=== PATIENT | male | born 1950 | race Caucasian/White ===

== ENCOUNTER 2017-03-03 09:07 | Inpatient (IN) | payer MEDICARE, OTHER ==
[~2017-03-03] VITALS: Ht 175.3 cm; Wt 103.8 kg
[2017-03-03] VITALS (16 sets, daily range): BP systolic 139–174; BP diastolic 59–99; PULSE 35–52; RESP 14–16; O2SAT 92–97
[~2017-03-03 09:07] MED LIST: ASPI81TA3; CLOP75TA14; CRES20T; LEV250; MTP50TCR; MTR250T; ZES20
--- NOTE | 2017-03-03 09:29 | ED.REPORT ---
HPI-Chest Pain 40 and Over Date of Service Mar 03, 2017 ED Provider: Dilcia Singleton MD The patient is a 66 year old male with a hx of IA with stents 2 years ago, CHF, hyperlipidemia, and HTN on metoprolol presenting to the ED from a residency clinic complaining of SOB onset last night. He claims to have had increasing exertional dyspnea for while now and the SOB for the last three days, but last night was particularly bad. He says that he is better as long as he is sitting up. The patient denies chest pain, LE swelling, fever, nausea, chills, or vomiting. Nursing Notes Stated Complaint: IRREGULAR HEARTBEAT/REFERRED BY RESIDENCY Chief Complaint: Chest Pain Nursing Notes Reviewed: Yes Allergies: Coded Allergies: No Known Allergies (Unverified , 03/03/17) Scheduled Aspirin (Aspirin) 81 Mg Tablet 81 MG PO DAILY Atorvastatin Calcium (Atorvastatin Calcium) 20 Mg Tablet 20 MG PO DAILY Lisinopril (Lisinopril) 10 Mg Tablet 10 MG PO BID Metoprolol Tartrate (Metoprolol Tartrate) 50 Mg Tablet 100 MG PO DAILY General Time Seen by MD: 09:23 Chief Complaint Shortness of breath Hx Obtained From: Patient Arrived By: Walk-in Sudden in Onset?: No Onset Occurred: Yesterday Symptom Duration: Since onset Recent Healthcare: Recent doctor visit, Recent testing Similar Sx Previous: Yes Risk Factors )( CAD Risk Stratification Risk factors reviewed )( TAD Risk Stratification Risk factors reviewed )( PE Risk Stratification Risk factors reviewed Past Medical History Past Medical History IA with stents 2 years ago HTN CAD Ischemic cardiomyopathy CHF Hyperlipidemia on metoprolol Past Surgical History left arm, knee Smoking History Unknown if Ever Smoker Ambulatory Status Independent Review of Systems Constitutional: Denies: Chills, Fever Respiratory: Reports: Shortness of breath Cardiovascular: Denies: Chest pain GI: Denies: Nausea, Vomiting Musculoskeletal: Denies: Extremity swelling Complete sys rev & neg: except as marked. Physical Exam Initial Vital Signs Vital Signs (First) Date Time Temp Pulse Resp B/P Pulse Ox O2 Delivery O2 Flow Rate FiO2 03/03/17 09:16 36.9 52 16 172/95 95 Room Air Initial VS: Reviewed, Vital signs normal Head / Eyes: Atraumatic, Normocephalic, PERRL Neck: Supple, Non-tender, Full range of motion Back: No CVA tenderness Extremities: Vascular intact, Neuro intact, No swelling, No tenderness Neurologic: Alert, Oriented, Nonfocal Psychiatric: Mood/affect normal, Behavior normal, Normal thought content General/Constitutional: Awake, Alert, No acute distress, Well appearing Respiratory / Chest: Atraumatic no fluids in lungs Cardiovascular: No murmurs no palpable distal pulse multiple non-difusing beats palpable HR lower than measured telemetry HR in 25-35 range Abdomen: Soft, Non-tender, McBurney's non-tender, No guarding, No rebound, BS normoactive, No distention, No hernia, No palpable mass Lower Extremity / Pelvis / MS: No deformity, Neurologic intact, No edema Skin: Atraumatic, Warm, Dry good skin perfusion and turgor Interpretation & Diagnostics Lab Results Interpretation Result Diagram: 03/03/17 0952 03/03/17 0952 Test 03/03/17 09:52 White Blood Count 7.9th/mm3 (3.8-10.1) Red Blood Count 5.25mil/mm3 (4.40-5.80) Hemoglobin 16.3g/dL (13.8-17.2) Hematocrit 47.7% (41.0-50.0) Mean Corpuscular Volume 90.9fL (81-100) Mean Corpuscular Hemoglobin 31.0pg (27.0-35.0) Mean Corpuscular Hemoglobin Concent 34.2% (32.0-37.0) Red Cell Distribution Width 13.6% (12.3-15.4) Platelet Count 174bil/L (150-400) Neutrophils (%) (Auto) 75.7% (40-74) Lymphocytes (%) (Auto) 14.9% (14-46) Monocytes (%) (Auto) 8.4% (4-12) Eosinophils (%) (Auto) 0.3% (0-5) Basophils (%) (Auto) 0.4% (0-3) Prothrombin Time 10.9sec (8.1-12.5) Prothromb Time International Ratio 1.02ratio Sodium Level 138mEq/L (134-144) Potassium Level 4.5mEq/L (3.5-5.2) Chloride Level 104mEq/L (97-108) Carbon Dioxide Level 17mmol/L (18-29) Blood Urea Nitrogen 15mg/dL (8-27) Creatinine 0.78mg/dL (0.76-1.27) Estimat Glomerular Filtration Rate 105mL/min (>59) Glucose Level 117mg/dL (60-99) Calcium Level 9.5mg/dL (8.5-10.1) Magnesium Level 1.8mg/dL (1.6-2.6) Total Bilirubin 1.1mg/dL (0.0-1.2) Aspartate Amino Transf (AST/SGOT) 29U/L (0-50) Alanine Aminotransferase (ALT/SGPT) 52U/L (0-44) Alkaline Phosphatase 80U/L (25-160) Troponin T 0.010ug/L (0.0-0.011) Pro-B-Type Natriuretic Peptide 1667pg/mL (0-376) Total Protein 7.3g/dL (6.4-8.4) Albumin 4.3g/dL (3.4-5.0) ECG Interpretation ECG Interpretation: 2nd degree type 2 block frequent PVC This is a significant change from the previous Time: 09:14 Interpreted by: ED physician Normal ECG Interpretation: Normal rate (78), Normal sinus rhythm, No acute ischemic changes ECG Interpretation: Noted bradycardia on lunchroom monitor 2nd degree type 2 block with 2:1 conduction Time: 10:53 Interpreted by: ED physician Abnormal Rate: Rate, 30 (36) X-Ray Chest Interpretation Chest Xray Interpretation: IMPRESSION: Mild cardiomegaly, without acute cardiopulmonary disease. Dictated by: Isaac Amezquita M.D. on 03/03/2017 at 9:46 Approved by: Isaac Amezquita M.D. on 03/03/2017 at 9:47 View: Portable, 1 view Interpretation / Wet Read by: Interpret - Radiologist Re-Eval/Medical Decision Med Decision/Clinical Course 66-year-old gentleman presents with exertional dyspnea for "a while". Significantly noticeable over the last 2 weeks and last night had severe orthopnea and was unable to lay down at all. EKG reveals bradycardia he has a second-degree type II block. No signs of ischemia and initial troponin is negative. He has had a number of stents placed previously. He is currently on metoprolol and has been taking it regularly remains hypotensive. At this point he has symptomatic bradycardia with any exertion at rest he is tolerating his heart rate in the 30s without problems. There does not appear to be significant failure at this point. He has a modest amount of interstitial findings on chest exam but no lower extremity edema We'll admit to our hospitalist service with cardiology consultation and consideration of pacemaker placement patient is currently nothing by mouth last meal was dinner yesterday Time of Eval: 11:20 Re-Evaluation/Progress Note: Patient rechecked. Discussed results and plan. Consultation #1: Referral / Consult Name: Jamison Duque MD Consulted With: Cardiology Call Returned at: 09:47 Imaging Engineer: Will see patient, Agrees with plan Note: Discussed patient's case. Agrees to see patient. Consultation #2: Referral / Consult Name: Joseph Quiñones MD Consulted With: Hospitalist Call Returned at: 12:01 Imaging Engineer: Will see patient, Agrees with plan, Accepts admit Counseled Regarding: Diagnosis, Lab results, Need for admission Discharge & Departure Primary Impression: Bradycardia Additional Impressions: Second-degree heart block Orthopnea Exertional dyspnea Disposition: ADMITTED TO HOSPITAL Discharge Condition All VS Reviewed: Yes Condition: Improved Referrals: Clarisse Mcgraw DO (PCP) Corinneibсветлана Attestation Portions of this note were transcribed by Camilla Cage and Janusz Seo. I, Dr. Singleton personally performed the history, physical exam and medical decision -making; I reviewed and confirmed the accuracy of the information in the transcribed note. Signed by: Joana Steen, 03/03/2017 copies to: Clarisse Mcgraw Shawna L MD Mar 03, 2017 09:28 Mar 03, 2017 09:43 CAMILLA CAGE Mar 03, 2017 10:10
--- NOTE | 2017-03-03 09:48 | DRSVH ---
PROCEDURE: X-RAY CHEST ONE VIEW, PORTABLE ([id number]) INDICATIONS: 66 year-old male with shortness of breath. TECHNIQUE: One view of the chest was acquired. COMPARISON: [facility], CR, CHEST 1VW (PORTABLE), 11/26/2007, 14:15. [facility], RG, CHEST 1VW (PORTABLE), 01/05/2006, 14:09. FINDINGS: Surgical changes and devices: None. Lungs and pleura: No pleural effusions or pneumothorax. Lungs are clear. Right apical azygos fissu re is again incidentally noted, an anatomic variant. Mediastinum: Mediastinal contours appear normal. Mild cardiomegaly is unchanged. Bones and chest wall: No suspicious bony lesions. Overlying soft tissues appear unremarkable. IMPRESSION: Mild cardiomegaly, without acute cardiopulmonary disease. Dictated by: Isaac Amezquita M.D. on 03/03/2017 at 9:46 Approved by: Isaac Amezquita M.D. on 03/03/2017 at 9:47
[2017-03-03] MEDS ORDERED: Atropine 1 mg/10 mL (Code) Syringe IVPUSH PRN ×2 (10:05→20:20)
[2017-03-03 10:08] LABS: BASOPHILS % (AUTO) 0.4 % (0-3); EOSINOPHILS % (AUTO) 0.3 % (0-5); MONOCYTES % (AUTO) 8.4 % (4-12); Mean Corpuscular Volume 90.9 fL (81-100); NEUTROPHILS % (AUTO) 75.7 % (40-74); Platelet Count 174 bil/L (150-400)
[2017-03-03] MEDS ORDERED: METO50TA3 PO (10:12)
[2017-03-03] MEDS ORDERED: LISI10TA PO (10:12)
[2017-03-03] MEDS ORDERED: ASPI-973 PO (10:12)
[2017-03-03] MEDS ORDERED: ATOR20TA PO (10:12)
[2017-03-03 10:56] LABS: INR 1.02 ratio
[2017-03-03 11:24] LABS: TROPONIN T 0.01 ug/L (0.0-0.011)
[2017-03-03 11:35] LABS: Magnesium 1.8 mg/dL (1.6-2.6)
[2017-03-03] MEDS ORDERED: ATOR20TA65 PO (12:04)
[2017-03-03] MEDS ORDERED: 0.9% Sodium Chloride 1,000 ML IV SCH (12:31)
[2017-03-03] MEDS ORDERED: Ondansetron 2 mg/mL 2 mL Inj IVPUSH PRN ×3 (12:35→20:20)
--- NOTE | 2017-03-03 13:01 | NUR ---
Admit Pt admitted to [facility] from ER at 1245. A&Oxe, vitals stable, Tele SB 50 with 2nd degree block, No c/o dizziness or SOB. No skin issues other than scrapes from blackberry bushes, cellphone and wallet at the bedside. Oriented to room and call light. Asked pt to call when getting up just for safety.
[2017-03-03] MEDS ORDERED: Alum-Mag Hydrox-Simeth 30 mL Suspension PO PRN (14:35)
[2017-03-03] MEDS ORDERED: Polyethylene Glycol (PEG) 17 Gm Powder PO PRN (14:35)
--- NOTE | 2017-03-03 14:48 | PCM.HPMED ---
Subjective Date of Service Mar 03, 2017 Primary Provider: Admitting Physician: Joseph Quiñones MD Primary Care Physician: Clarisse Mcgraw DO Attending Physician: Joseph Quiñones MD Chief Complaint: Shortness of breath History of Present Illness: Patient is a 66-year-old male from home presented to the ED with orthopnea and bradycardia. He carries a medical history significant for obesity, hypertension, dyslipidemia , CAD s/p stenting, and ischemic cardiomyopathy. Per patient, reported progressive worsening of shortness of breath for 1-1.5 months with associated near syncope. Last night, he had significant orthopnea with rate 48 and irregular rhythm, unable to sleep, thus sought medical care. Patient called [facility] residency, which referred him to the ED for further evaluation. Patient denies any current lightheadedness or dizziness, no chest pain, no palpitation. Patient further denies any recent leg swelling, dry cough or orthopnea. At baseline, patient reported that he can push mow his lawn for total "4.7 miles in 2 hours". The ED, patient noted to be bradycardic at 52 with EKG showing second-degree heart block type II. Cardiology consulted and is following. Patient admitted inpatient for further workup. Review of Systems: A comprehensive review of systems was conducted with the patient and found to be negative except as above in the History of Present Illness. Allergies Coded Allergies: No Known Allergies (Unverified , 03/03/17) Home Medications Aspirin 81 mg daily Atorvastatin 20 mg daily Lisinopril 10 mg twice a day Metoprolol tartrate 100 mg daily PMH Hypertension Hyperlipidemia Coronary artery disease -RCA complete occlusion -Circumflex occluded -Drug eluding stent x2 to LAD Ischemic cardiomyopathy History of systolic heart failure, EF 25% (10/2005) Surgical History Cardiac catheterization and stenting 2005 Family History Father with diabetes type II, of heart failure Mother with Alzheimer disease Social History Hx Alcohol Use: No Hx Substance Use: No Hx Tobacco Use: Yes Smoking Status: Former Smoker, Unknown if Ever Smoker Exam Vital Signs Vital Sign - Last Date Time Temp Pulse Resp B/P Pulse Ox O2 Delivery O2 Flow Rate FiO2 03/03/17 12:51 50 03/03/17 12:46 36.6 16 174/99 97 Room Air Exam General: No acute distress, appropriately interactive HEENT: Normocephalic, atraumatic. PERRLA, EOMI, Anicteric sclerae, moist conjunctivae. Neck: No bruits. No lymphadenopathy or thyromegaly. Cardiovascular: Bradycardic, irregular, no murmur rub or gallop noted, no JVD, no bilateral pedal edema Pulmonary: b/l air sound with no crackles, wheezes, or rhonchi. no use of accessory muscles. Abdomen: +Bowel sound, Soft, nontender, nondistended. Extremities: No clubbing or cyanosis, no lymphedema Skin: Normal temperature, turgor, and texture; no rash. No visualized skin ulcer. Neurological: CN II-VII grossly intact, moving equally on all 4 extremities Psychiatric: Normal mood and affect. AOx3 Lab and Diagnostics Result Diagram: 03/03/1752 03/03/1752 X-Rays, CTs and MRIs PROCEDURE: X-RAY CHEST ONE VIEW, PORTABLE ([id number]) INDICATIONS: 66 year-old male with shortness of breath. IMPRESSION: Mild cardiomegaly, without acute cardiopulmonary disease. Dictated by: Isaac Amezquita M.D. on 03/03/2017 at 9:46 Assessment & Plan Patient 66-year-old male with a medical history significant for hypertension, dyslipidemia, CAD status post stenting, and ischemic cardiomyopathy admitted for bradycardia. Bradycardia, present on admission, active -2nd heart block, type II -holding home dose metoprolol -Telemetry order -repeat EKG in the morning -Echocardiogram ordered -Cardiology Jamison Montano consulted Essential hypertension, present remission, active -Continue lisinopril, Holding metoprolol as above -Enalapril 5 mg IV push for SBP greater than 180 mmHg Dyslipidemia, present on admission, active -Continue atorvastatin Coronary artery disease, present on admission, stable -Continue statin and aspirin DVT prophylaxis CODE STATUS full code Patient Status: Patient is admitted under inpatient status with expected length of stay GREATER than 2 midnights due to severity of presenting symptoms, risk of adverse event, and complexity of treatment plan. VTE Prophylaxis: Sub-Q Heparin (Unfractionated) Resuscitation Status: CPR: Attempt Resuscitation Time spent 45 minutes Attending Statement The patient was seen and examined together with on March 03 and I agree with the history, exam findings, and plan as outlined in the note above. I did participate in all aspects of the services provided today, including documentation and the plan of care. The patient appears to be a type II second-degree block. Will hold metoprolol and consult cardiology. The patient has a known history of coronary artery disease with two-vessel disease demonstrated his last angiogram. Manuel Hunter DO Mar 03, 2017 14:48 Joseph Quiñones MD Mar 04, 2017 08:27
[2017-03-03] MEDS ORDERED: Enalaprilat 1.25 mg/mL 2 mL Inj IVPUSH PRN (15:20)
[2017-03-03] MEDS ORDERED: Heparin 1,000 Units/500 mL NS Premix IV ONE (15:51)
[2017-03-03] MEDS ORDERED: Heparin 1,000 Unit/mL 10 mL Inj ONE (15:51)
[2017-03-03] MEDS ORDERED: Heparin 10,000 Unit/1,000 mL NS Premix IV ONE (15:51)
[2017-03-03] MEDS: Heparin 5,000 Unit/mL Inj SUBQ SCH (16:30)
[2017-03-03] MEDS ORDERED: fentaNYL-PF 50 mCg/mL 2 mL Inj ONE ×2 (16:48→16:58)
--- NOTE | 2017-03-03 16:56 | CONS ---
[address] [address] CONSULTATION REPORT PATIENT: JOSHUA REINA : 1950 MR#: [id number] ADMIT: 03/03/2017 JOB ID: [id number] DATE OF SERVICE: 03/03/2017 CHIEF COMPLAINT: Shortness of breath. HISTORY OF PRESENT ILLNESS: This 66-year-old gentleman with a history of prior [place] with stents years ago; he is not sure when. This was done at [facility]. He now presents with shortness of breath. He states for the past three months, he has been finding it difficult to mow his lawn. He is gradually getting more and more short of breath to the point where he recently tried mowing his lawn, he got short of breath and along with this. He felt extremely weak. He also got diaphoretic. Last night, he could sleep very well. He was having shortness of breath. He could not lie flat. He did have to sit up multiple times. He decided to come to the emergency department this morning. In the emergency department, he was found to have periods of 2:1 AV block. Cardiology was consulted. The patient at the time of interview is pain free. He is feeling better. He has not had any chest pressure or tightness since he has been in the hospital. PAST MEDICAL HISTORY: Significant for hypertension, hyperlipidemia, coronary artery disease, ischemic cardiomyopathy, systolic dysfunction. Past cardiac catheterization films will be obtained from archives. He has history of severe three-vessel coronary artery disease with total occlusion of RCA and stenting of the LAD. MEDICATIONS: At home: Aspirin, atorvastatin, lisinopril, metoprolol. ALLERGIES: None. PERSONAL HISTORY: Nonsmoker, nondrinker. Quit smoking over seven years ago. FAMILY HISTORY: Negative for premature coronary artery disease. PHYSICAL EXAMINATION: Elderly gentleman in no apparent distress. Looks somewhat older than his stated age. Pulse 60, blood pressure 170/99. Neck is supple. No JVD. Chest: Clear. Heart sounds S1, S2, regular. No murmurs, no gallops. Abdomen is soft. No organomegaly. Extremities: No edema. GENERAL I FARMWORKER: Alert and oriented x3. Psych: Mood and affect is appropriate. LABORATORY DATA: Labs were reviewed. Creatinine is 0.78, hemoglobin is 16. DIAGNOSTIC DATA: EKG is reviewed. He has got 2:1 AV block. There is suggestion of an accessory pathway on his baseline EKG. ASSESSMENT AND PLAN: This gentleman's history is suggestive of paroxysmal nocturnal dyspnea during the night. Given his exertional dyspnea and history of ischemic cardiomyopathy, I feel he needs to be evaluated with repeat angiogram. Risks, benefits and alternatives were explained to the patient. He is agreeable. This should be done later today. With regards to his atrioventricular block, I would like to hold his metoprolol and if his heart rate does not improve, he might be a candidate for permanent pacemaker insertion as well.
[2017-03-03] MEDS ORDERED: EPINEPHrine 0.1 mg/mL 10 mL Syringe ONE (17:04)
--- NOTE | 2017-03-03 17:49 | CS94 ---
[address] [address] DIAGNOSTIC CARDIAC CATHETERIZATION PATIENT: JOSHUA REINA : 1950 MR#: [id number] ADMIT: 03/03/2017 JOB ID: [id number] SERVICE DATE: 03/03/2017 PROCEDURE: Selective right and left coronary angiography, left heart catheterization. INDICATION: Ischemic cardiomyopathy, PND. PROCEDURAL DETAILS: The readers and the coders are referred to the procedure log for complete details. Briefly, it was done via right femoral approach using a 6-Mosotho system. ANGIOGRAPHIC FINDINGS: 1. Calcification of the left main and proximal coronaries is noted on fluoroscopy. 2. LAD has a stent in its mid to proximal portion. The stent is patent. Moderate caliber septal branch. The LAD is totally occluded in its mid segment. It appears to be a short moderate caliber occlusion. 3. Circumflex is nondominant. It is totally occluded in its proximal part. It gives off a rather large caliber obtuse marginal branch. This is a very short-segment occlusion. The obtuse marginal branch is bypassable. 4. RCA has an ostial 80% lesion. It is totally occluded in its mid segment. Bridging collaterals are seen in the mid segment. The RCA is also seen via [id number] collaterals. The distal RCA appears to be bypassable. 5. Left heart catheterization revealed an LVEDP of 18. There was no gradient upon pullback. There is severe LV dysfunction. EF is estimated to be around 25%, though this was a suboptimal injection, as the injector got disconnected half-way through the injection. RECOMMENDATIONS: Given the patient's 2:1 AV block, I would recommend holding his beta blockers. In the interim I would recommend optimizing his heart failure medications with hydralazine and nitrates. He needs to be evaluated for an ICD as well. With regards to his ischemic cardiomyopathy, even though the LAD and the circumflex are amenable to percutaneous intervention, the RCA I feel would be challenging and very difficult part. It is a long segment of occlusion and even with a retrograde approach he might end up losing a rather significant marginal branch, therefore he is best served with bypass surgery. I will be contacting surgeons at [facility].
--- NOTE | 2017-03-03 20:13 | NUR ---
[facility], VSS, Rt groin site CDI with no bleeding/hematoma noted.
[2017-03-03] MEDS ORDERED: 0.9% Sodium Chloride 400 ML (4 HRS) IV ONE (20:20)
[2017-03-03] MEDS ORDERED: 0.9% Sodium Chloride 250 ML BOLUS IV PRN (20:20)
[2017-03-03] MEDS ORDERED: Sodium Chloride LOK Flush 10 mL Syringe IVFLUSH PRN (20:20)
[2017-03-04] MEDS: Heparin 5,000 Unit/mL Inj SUBQ SCH ×2 (01:01→08:47)
[2017-03-04 04:10] VITALS: BP 159/76; PULSE 50; RESP 16; O2SAT 94
--- NOTE | 2017-03-04 04:44 | NUR ---
Groin Site/HR Pt's groin site still has the dressing on so no direct observation at this time. Pt's groin site has minimal bruising and is not tender and is soft to the touch. Pt still has not been OOB yet. Pt's HR has remained in the 30s-40s and pt is asymptomatic. has been made aware.
[2017-03-04 05:29] VITALS: PULSE 52
[2017-03-04 05:35] LABS: Mean Corpuscular Hemoglobin 30.8 pg (27.0-35.0); Mean Corpuscular Volume 91.8 fL (81-100)
[2017-03-04 05:55] LABS: Magnesium 1.9 mg/dL (1.6-2.6)
[2017-03-04 08:00] VITALS: PULSE 51
[2017-03-04 08:48] VITALS: BP 130/81; PULSE 59; RESP 18; O2SAT 97
[2017-03-04 11:16] VITALS: BP 154/55; PULSE 41; RESP 24; O2SAT 96
--- NOTE | 2017-03-04 12:14 | DRSVH ---
[facility] [address] [place] [address] Echocardiogram Report Name: JOSHUA REINA Date: 03/04/2017 Height: 69 in Hospital Exam Location: [facility] Weight: 229 lb Gender: Male BSA: 2.2 m2 : 1950 Age: 66 yrs BP: 159/76 mmHg Reason For Study: HEART BLOCK Ordering Physician: Performed By: Yared Arteaga Referring Physician: HAI GUZMAN Interpretation Summary 1) Severely dilated left ventricle with moderately to sevrely reduced function (EF about 30%). 2) Apical dyskinesis, basal inferolateral wall and basal wall are akinetic. Mid to distal inferior wall, distal septum, and mid to to distal inferolateral wall are severely hypokinetic. Anterior wall and mid septum are mildly hypokinetic. The anterolateral wall and the basal septum have preserved wall motion. 3) Normal right ventricular size and normal function. 4) No significant valvular abnormalities. 5) No prior Echo available for comparison. Findings consistent with ischemic cardiomyopathy. Procedure: A two-dimensional transthoracic echocardiogram with color flow and Doppler was performed. The study quality was technically difficult. A contrast injection of Definity was performed to improve assessment of LV function. Comparison is made with the echocardiogram of 11/12/05. The patient was in a bradycardic rhythm during the exam. The patient had frequent PVCs during the exam. Left Ventricle: The left ventricle is severely dilated. There is normal left ventricular wall thickness. Left ventricular ejection fraction is estimated to be 30 +/- 5%. Left ventricular systolic function is moderate to severely reduced. Apical dyskinesis, basal inferolateral wall and basal wall are akinetic. Mid to distal inferior wall, distal septum, and mid to to distal inferolateral wall are severely hypokinetic. Anterior wall and mid septum are mildly hypokinetic. The anterolateral wall and the basal septum have preserved wall motion. Right Ventricle: The right ventricle grossly appears normal in size with probable normal systolic function. Atria: The left atrium is severely dilated. The right atrium is mild to moderately dilated. The interatrial septum is intact with no evidence for an atrial septal defect. Mitral Valve: The mitral valve leaflets appear borderline thickened, but open well. There is trace mitral regurgitation. Aortic Valve: The aortic valve is normal in structure and function. No aortic regurgitation is present. Tricuspid Valve: The tricuspid valve is not well visualized, but is grossly normal. Pulmonary artery pressures cannot be estimated because of the lack of a measurable TR jet velocity. Pulmonic Valve: The pulmonic valve is not well visualized. Great Vessels: The aortic root is normal size. The ascending aorta is mild- moderately enlarged. The pulmonary is not well visualized. The IVC is of normal diameter and collapses greater than 50% with a sniff. This suggests a low right atrial pressure of 3 mm Hg. Pericardium/ Pleura There is a trivial pericardial effusion noted. There is a moderate left-sided pleural effusion. MMode/2D Measurements & Calculations LVIDd: 7.2 cm LVIDs: 6.8 cm LA A2 area: 30.2 cm FS: 6.5 % LA A4 area: 24.4 cm IVSd: 1.00 cm LA length (vol): 5.5 cm LVPWd: 0.80 cm LA vol: 113.7 ml LA vol index: 52.0 ml/m IVC diam: 2.1 cm RA long axis: 6.2 cm LVOT diam: 2.3 cm RA area: 24.8 cm Ao root diam: 3.5 cm RA vol: 84.4 ml asc Aorta Diam: 4.0 cm RA : 38.6 ml/m2 Ao Arch Diam (Prox Trans): 3.5 cm LV mccoy. diameter/BSA (cm/m^2): 3.3 LV sys. diameter/BSA (cm/m^2): 3.1 RVD1 (basal): 4.8 cm TAPSE: 2.0 cm Doppler Measurements & Calculations Ao V2 max: 125.6 cm/sec Ao V2 mean: 79.2 cm/sec Ao max P.5 mmHg Ao V2 VTI: 18.0 cm Ao mean P.4 mmHg ALDO(V,D): 2.5 cm2 LVOT Max Anil: 77.6 cm/sec ALDO(I,D): 3.3 cm sev ratio: 0.81 LV V1 max P.7 mmHg ALDO indexed to BSA (cm^2/m^2): 1.5 LV V1 VTI: 14.6 cm Reading Physician:12:13 PM
--- NOTE | 2017-03-04 13:05 | PCM.DC.MED ---
Discharge Summary Date of Service Mar 04, 2017 Dates of Hospitalization Date of Hospital Admission Mar 03, 2017 at 11:44 Date of Discharge: Mar 04, 2017 Providers: Admitting Physician: Joseph Quiñones MD Primary Care Physician: Clarisse Mcgraw DO Attending Physician: Joseph Quiñones MD Diagnosis at Time of Discharge Diagnosis at Time of Discharge Bradycardia, present on admission, active Ischemic cardiomyopathy, present on admission, stable Essential hypertension, present remission, active Dyslipidemia, present on admission, active Coronary artery disease, present on admission, stable Consultations Cardiology Procedures XRay, CTs & MRIs PROCEDURE: X-RAY CHEST ONE VIEW, PORTABLE ([id number]) INDICATIONS: 66 year-old male with shortness of breath. IMPRESSION: Mild cardiomegaly, without acute cardiopulmonary disease. Dictated by: Isaac Amezquita M.D. on 03/03/2017 at 9:46 Cardiac Echo Impression Echocardiogram Report Interpretation Summary 1) Severely dilated left ventricle with moderately to sevrely reduced function (EF about 30%). 2) Apical dyskinesis, basal inferolateral wall and basal wall are akinetic. Mid to distal inferior wall, distal septum, and mid to to distal inferolateral wall are severely hypokinetic. Anterior wall and mid septum are mildly hypokinetic. The anterolateral wall and the basal septum have preserved wall motion. 3) Normal right ventricular size and normal function. 4) No significant valvular abnormalities. 5) No prior Echo available for comparison. Findings consistent with ischemic cardiomyopathy. Reading Physician:12:13 PM Invasive Procedures SERVICE DATE: 03/03/2017 PROCEDURE: Selective right and left coronary angiography, left heart catheterization. ANGIOGRAPHIC FINDINGS: 1. Calcification of the left main and proximal coronaries is noted on fluoroscopy. 2. LAD has a stent in its mid to proximal portion. The stent is patent. Moderate caliber septal branch. The LAD is totally occluded in its mid segment. It appears to be a short moderate caliber occlusion. 3. Circumflex is nondominant. It is totally occluded in its proximal part. It gives off a rather large caliber obtuse marginal branch. This is a very short-segment occlusion. The obtuse marginal branch is bypassable. 4. RCA has an ostial 80% lesion. It is totally occluded in its mid segment. Bridging collaterals are seen in the mid segment. The RCA is also seen via rfco-ky-rmida collaterals. The distal RCA appears to be bypassable. 5. Left heart catheterization revealed an LVEDP of 18. There was no gradient upon pullback. There is severe LV dysfunction. EF is estimated to be around 25%, though this was a suboptimal injection, as the injector got disconnected custodial through the injection. RECOMMENDATIONS: Given the patient's 2:1 AV block, I would recommend holding his beta blockers. In the interim I would recommend optimizing his heart failure medications with hydralazine and nitrates. He needs to be evaluated for an ICD as well. With regards to his ischemic cardiomyopathy, even though the LAD and the circumflex are amenable to percutaneous intervention, the RCA I feel would be challenging and very difficult part. It is a long segment of occlusion and even with a retrograde approach he might end up losing a rather significant marginal branch, therefore he is best served with bypass surgery. I will be contacting surgeons at [facility]. Jamison Duque MD 03/03/17 3315 Brief History Patient is a 66-year-old male from home presented to the ED with orthopnea and bradycardia. He carries a medical history significant for obesity, hypertension, dyslipidemia , CAD s/p stenting, and ischemic cardiomyopathy. Per patient, reported progressive worsening of shortness of breath for 1-1.5 months with associated near syncope. Last night, he had significant orthopnea with rate 48 and irregular rhythm, unable to sleep, thus sought medical care. Patient called [facility] residency, which referred him to the ED for further evaluation. Patient denies any current lightheadedness or dizziness, no chest pain, no palpitation. Patient further denies any recent leg swelling, dry cough or orthopnea. At baseline, patient reported that he can push mow his lawn for total "4.7 miles in 2 hours". The ED, patient noted to be bradycardic at 52 with EKG showing second-degree heart block type II. Cardiology consulted and is following. Patient admitted inpatient for further workup. Hospital Course Patient 66-year-old male with a medical history significant for hypertension, dyslipidemia, CAD status post stenting and ischemic cardiomyopathy-EF 30% (2005 ) admitted for bradycardia. Cardiac catheterization results as above. Patient would need an evaluation for bypass surgery to RCA. Cardiothoracic Surgeon Dr. Mitchell has accepted the transfer. Bradycardia, present on admission, active -2nd heart block, type II -holding home dose metoprolol -Cardiology Jamison Montano recommended a transfer to [facility]. Ischemic cardiomyopathy, present on admission, stable -EF 30% on recent echo. -No signs or symptoms of overt heart failure Essential hypertension, present remission, active -Continue lisinopril, Holding metoprolol as above -Enalapril 5 mg IV push for SBP greater than 180 mmHg Dyslipidemia, present on admission, active -Continue atorvastatin Coronary artery disease, present on admission, stable -Continue statin and aspirin DVT prophylaxis heparin Code status: full code. Exam Vital Signs (Last) Date Time Temp Pulse Resp B/P Pulse Ox O2 Delivery O2 Flow Rate FiO2 03/04/17 11:16 37.0 41 24 154/55 96 Room Air Exam General: No acute distress, appropriately interactive HEENT: Normocephalic, atraumatic. PERRLA, EOMI, Anicteric sclerae, moist conjunctivae. Neck: No bruits. No lymphadenopathy or thyromegaly. Cardiovascular: Bradycardic, irregular, no murmur rub or gallop noted, no JVD, no bilateral pedal edema Pulmonary: b/l air sound with no crackles, wheezes, or rhonchi. no use of accessory muscles. Abdomen: +Bowel sound, Soft, nontender, nondistended. Extremities: No clubbing or cyanosis, no lymphedema Skin: Normal temperature, turgor, and texture; no rash. No visualized skin ulcer. Neurological: CN II-VII grossly intact, moving equally on all 4 extremities Psychiatric: Normal mood and affect. AOx3 Test 03/03/17 09:52 03/03/17 15:38 03/04/17 05:00 Neutrophils (%) (Auto) 75.7% (40-74) Lymphocytes (%) (Auto) 14.9% (14-46) Monocytes (%) (Auto) 8.4% (4-12) Eosinophils (%) (Auto) 0.3% (0-5) Basophils (%) (Auto) 0.4% (0-3) Prothrombin Time 10.9sec (8.1-12.5) Prothromb Time International Ratio 1.02ratio Pro-B-Type Natriuretic Peptide 1667pg/mL (0-376) Thyroid Stimulating Hormone (TSH) 2.320uIU/mL (0.450-4.500) Troponin T 0.017ug/L (0.0-0.011) White Blood Count 6.7th/mm3 (3.8-10.1) Red Blood Count 4.74mil/mm3 (4.40-5.80) Hemoglobin 14.6g/dL (13.8-17.2) Hematocrit 43.5% (41.0-50.0) Mean Corpuscular Volume 91.8fL (81-100) Mean Corpuscular Hemoglobin 30.8pg (27.0-35.0) Mean Corpuscular Hemoglobin Concent 33.6% (32.0-37.0) Red Cell Distribution Width 13.7% (12.3-15.4) Platelet Count 125bil/L (150-400) Sodium Level 140mEq/L (134-144) Potassium Level 4.0mEq/L (3.5-5.2) Chloride Level 104mEq/L (97-108) Carbon Dioxide Level 20mmol/L (18-29) Blood Urea Nitrogen 12mg/dL (8-27) Creatinine 0.76mg/dL (0.76-1.27) Estimat Glomerular Filtration Rate 108mL/min (>59) Glucose Level 103mg/dL (60-99) Calcium Level 8.7mg/dL (8.5-10.1) Magnesium Level 1.9mg/dL (1.6-2.6) Total Bilirubin 1.5mg/dL (0.0-1.2) Aspartate Amino Transf (AST/SGOT) 24U/L (0-50) Alanine Aminotransferase (ALT/SGPT) 44U/L (0-44) Alkaline Phosphatase 71U/L (25-160) Total Protein 5.7g/dL (6.4-8.4) Albumin 3.8g/dL (3.4-5.0) Discharge Medications Discharge Medications Aspirin (Aspirin) 81 Mg Tablet 81 MG PO DAILY (Reported) Atorvastatin Calcium (Atorvastatin Calcium) 20 Mg Tablet 20 MG PO DAILY ( Reported) Lisinopril (Lisinopril) 10 Mg Tablet 10 MG PO BID (Reported) Metoprolol Tartrate (Metoprolol Tartrate) 50 Mg Tablet 100 MG PO DAILY (Reported ) Followup Plan Disposition: Transfer to [facility] cardiothoracic surgery service. Time spent 60 minutes Attending Statement The patient was seen and examined together with on March 04 and I agree with the history, exam findings, and plan as outlined in the note above. I did participate in all aspects of the services provided today, including documentation and the plan of care. The patient has multivessel coronary artery disease which appears to be most amenable to coronary artery bypass grafting. Cardiology has discussed this transfer with problems at work. The patient understands the rationale for transfer. He is medically stable for transfer at the time of discharge. Manuel Hunter DO Mar 04, 2017 13:05 Joseph Quiñones MD Mar 04, 2017 15:38
--- NOTE | 2017-03-04 13:10 | NUR ---
Transfer to [place] patient to be transferred to [facility]. Called to give report however RN on break at this time. Will call again. patient made aware of transfer and instructed on transfer. Patient verbalized understanding. however pt seem to be forgetful due to forgetting information given in the AM. Given information on open heart surgery and heart cath. patient left via Ambulance with all belongings. Family aware of transfer.
--- NOTE | 2017-03-04 13:26 | NUR ---
Social Work: Brief Note / Multidisciplinary Rounds / Discharge EMR reviewed. Patient is a 66 year old male who was admitted on 03/03/17 for bradycardia per H&P. Patient's insurance is Medicare and [facility]. Patient's PCP is Clarisse Mcgraw DO. Patient was discussed in morning rounds. Patient has been deemed medically stable per MD. Patient will be transferred to [facility] for further treatment. Patient will transport by EMS and pickup time has been arranged for 1300. SW was unable to complete initial assessment due to hospital transfer. Patient family has been notified of transfer per RN. Patient has no additional needs at this time. ROSIBEL Echols
--- NOTE | 2017-03-04 13:57 | NUR ---
Report to [place] Report given to Arabella ESPINOZA at [facility].
== END 2017-03-04 13:13 | disposition short-term general hospital (02) | DRG 287 ==
LOC: SED 09:07 → PCC 11:44
PROVIDERS: ADMIT Hospitalist; ATTEND Hospitalist
PROC: B2111ZZ Fluoroscopy of Multiple Coronary Arteries using Low Osmolar Contrast (ICD-10-PCS; principal; 2017-03-03)
PROC: 4A023N7 Measurement of Cardiac Sampling and Pressure, Left Heart, Percutaneous Approach (ICD-10-PCS; 2017-03-03)
DX: I44.1 Atrioventricular block, second degree (principal); R00.1 Bradycardia, unspecified; Z79.82 Long term (current) use of aspirin; Z95.5 Presence of coronary angioplasty implant and graft; I25.2 Old myocardial infarction; E78.5 Hyperlipidemia, unspecified; I25.10 Atherosclerotic heart disease of native coronary artery without angina pectoris; I10 Essential (primary) hypertension; I25.5 Ischemic cardiomyopathy